=== PATIENT | female | born 2005 | race Two or more races ===

== ENCOUNTER 2025-01-19 10:26 | Outpatient (CLI) | payer OTHER | END 2025-01-19 10:27 | disposition home or self-care (01) | LOC: PRENATAL 10:26 | PROVIDERS: ATTEND Obstetrics & Gynecology Maternal & Fetal Medicine | DX: O44.00 Complete placenta previa NOS or without hemorrhage, unspecified trimester (principal); O43.90 Unspecified placental disorder, unspecified trimester; Z3A.21 21 weeks gestation of pregnancy ==

== ENCOUNTER 2025-03-11 14:18 | Outpatient (CLI) | payer OTHER | END 2025-03-11 14:20 | disposition home or self-care (01) | LOC: PRENATAL 14:18 | PROVIDERS: ATTEND Obstetrics & Gynecology Maternal & Fetal Medicine | DX: O26.849 Uterine size-date discrepancy, unspecified trimester (principal); O36.8130 Decreased fetal movements, third trimester, not applicable or unspecified; O43.90 Unspecified placental disorder, unspecified trimester; O99.019 Anemia complicating pregnancy, unspecified trimester; Z3A.28 28 weeks gestation of pregnancy ==

== ENCOUNTER → 2025-04-27 07:56 | Outpatient (CLI) | payer OTHER | END | disposition home or self-care (01) | LOC: PRENATAL 07:56 | PROVIDERS: ATTEND Obstetrics & Gynecology Maternal & Fetal Medicine | DX: O26.843 Uterine size-date discrepancy, third trimester (principal); O36.8130 Decreased fetal movements, third trimester, not applicable or unspecified; O43.93 Unspecified placental disorder, third trimester; Z3A.35 35 weeks gestation of pregnancy ==